=== PATIENT | male | born 1995 | race Caucasian/White ===

== ENCOUNTER 2018-03-30 01:42 | Emergency (ER) | payer OTHER ==
[~2018-03-30] VITALS: Ht 182.9 cm; Wt 129.3 kg
[2018-03-30] MEDS ORDERED: AMBIEN 5 MG TABL5 M1 PO (01:56)
[2018-03-30] MEDS ORDERED: ADDERALL XR 3030 MG PO (01:56)
[2018-03-30] MEDS ORDERED: DOXYCYCLINE 10100 M1 PO (01:57)
[2018-03-30] MEDS ORDERED: HYDROCODONE-AP1 EAC6 PO (02:29)
[2018-03-30 02:46] VITALS: BP 139/94
== END 2018-03-30 02:46 | disposition home or self-care (01) ==
LOC: M.ERS 01:42
DX: S22.32XA Fracture of one rib, left side, initial encounter for closed fracture (principal); F17.210 Nicotine dependence, cigarettes, uncomplicated; X58.XXXA Exposure to other specified factors, initial encounter; Y93.89 Activity, other specified; Y92.89 Other specified places as the place of occurrence of the external cause; Y99.8 Other external cause status